=== PATIENT | male | born 1945 | race Hispanic/Latino ===

== ENCOUNTER 2021-07-13 05:33 | Observation (INO) | payer OTHER ==
[2021-07-08 15:06] LABS: BASOPHILS % (AUTO) 0.6 % (0.0-5.0); EOSINOPHILS % (AUTO) 2.1 % (0.0-8.0); HEMATOCRIT 35.8 % (42-54); LYMPHOCYTES % (AUTO) 27.4 % (21.0-51.0); MEAN CORPUSCULAR HEMOGLOBIN 31.6 pg (27.0-33.0); MEAN CORPUSCULAR HGB CONC 33.5 g/dL (32.0-36.0); MEAN CORPUSCULAR VOLUME 94.2 fL (79-99); MONOCYTES % (AUTO) 9.9 % (3.0-13.0); NEUTROPHILS % (AUTO) 59.8 % (40.0-77.0); PLATELET COUNT (AUTO) 190 K/uL (130-400); RED CELL DISTRIBUTION WIDTH 13.1 % (11.0-15.5); WHITE BLOOD COUNT (AUTO) 5.3 K/uL (4.8-10.8)
[2021-07-08 15:15] LABS: CREATININE 1.3 mg/dL (0.5-1.5); POTASSIUM 4.5 mmol/L (3.5-5.1)
[2021-07-08 15:17] LABS: INR 1.06 (0.85-1.15); PROTHROMBIN TIME 11.5 SEC (9.6-11.6)
[2021-07-08 15:18] LABS: PARTIAL THROMBOPLASTIN TIME 27.5 SEC (26.3-35.5)
[2021-07-12 10:29] VITALS: BP 139/64
[~2021-07-13] VITALS: Ht 165.1 cm; Wt 63.7 kg
[2021-07-13] VITALS (24 sets, daily range): BP systolic 93–156; BP diastolic 51–85
[2021-07-13] MEDS ORDERED: CEFAZOLIN SODIUM 1 GM VIAL ONE (06:43)
[2021-07-13] MEDS ORDERED: 0.9%NACL 1000ML 1,000 ML IV ONE (06:43)
[2021-07-13] MEDS ORDERED: TRANEXAMIC ACID 1000MG/10ML ONE ×3 (07:08)
[2021-07-13] MEDS ORDERED: MIDAZOLAM HCL 1 MG/ML 2ML VIAL ONE (07:16)
[2021-07-13] MEDS ORDERED: LIDOCAINE PF 100MG/5ML (2%) SYRINGE 5ML ONE (07:24)
[2021-07-13] MEDS ORDERED: ROCURONIUM 10MG/1ML SYR 10 MG/ML ML ONE ×2 (07:24→07:53)
[2021-07-13] MEDS ORDERED: PROPOFOL 10 MG/ML 20ML VIAL IV ONE ×2 (07:24→08:35)
[2021-07-13] MEDS ORDERED: PROPOFOL 1000 MG/100 ML 100 ML IV ONE (07:31)
[2021-07-13] MEDS ORDERED: CEFAZOLIN SODIUM 2 GM VIAL IV ONE (07:32)
[2021-07-13] MEDS ORDERED: FENTANYL CITRATE PF 50 MCG/1 ML 2ML VIAL ONE (07:33)
[2021-07-13] MEDS ORDERED: EPHEDRINE SULFATE 50 MG/ML AMPULE ONE (07:34)
[2021-07-13] MEDS ORDERED: TAMS-1 PO (07:41)
[2021-07-13] MEDS ORDERED: BUSP10TA3 PO (07:41)
[2021-07-13] MEDS ORDERED: CARB10DR6 OP (07:41)
[2021-07-13] MEDS ORDERED: OXYB5TAB15 PO (07:41)
[2021-07-13] MEDS ORDERED: SIMV-46 PO (07:41)
[2021-07-13] MEDS ORDERED: LATA7.5D OP (07:41)
[2021-07-13] MEDS ORDERED: CHOL200013 PO (07:41)
[2021-07-13] MEDS ORDERED: AMLO-257 PO (07:41)
[2021-07-13] MEDS ORDERED: LEVO25CA4 PO (07:41)
[2021-07-13] MEDS ORDERED: SILD20TA14 PO (07:41)
[2021-07-13] MEDS ORDERED: LOSA50TA64 PO (07:41)
[2021-07-13] MEDS ORDERED: FERR325T29 PO (07:41)
[2021-07-13] MEDS ORDERED: FAMO40TA7 PO (07:41)
[2021-07-13] MEDS ORDERED: AEC81 PO (07:41)
[2021-07-13] MEDS ORDERED: DICL20GE TP (07:41)
[2021-07-13] MEDS ORDERED: FLUO40CA7 PO (07:41)
[2021-07-13] MEDS ORDERED: OMEP40CA21 PO (07:41)
[2021-07-13] MEDS ORDERED: DICY10CA13 PO (07:41)
[2021-07-13] MEDS ORDERED: ROPIVACAINE 0.5% 5MG/ML 30ML IJ ONE (09:18)
[2021-07-13] MEDS ORDERED: DEXAMETHASONE SOD PHOSPHATE 10MG/ML 1ML VIAL ONE (09:20)
[2021-07-13] MEDS: ACETAMINOPHEN 500 MG TABLET PO SCH ×2 (09:30→17:58)
[2021-07-13] MEDS ORDERED: MORPHINE 4 MG SYG IVP PRN (09:30)
[2021-07-13] MEDS ORDERED: HYDROCODONE/ACETAMINOPHEN 5/325 MG TAB PO PRN (09:30)
[2021-07-13] MEDS ORDERED: POTASSIUM CHLORIDE 20MEQ/100ML 100 ML IV PRN (09:30)
[2021-07-13] MEDS ORDERED: KCL 20 MEQ ERTAB PO PRN (09:30)
[2021-07-13] MEDS ORDERED: HYDROCODONE/ACETAMINOPHEN 10/325 MG TAB PO PRN (09:30)
[2021-07-13] MEDS ORDERED: LIDOCAINE HCL-MPF 1% 2ML VIAL IV PRN (09:30)
[2021-07-13] MEDS ORDERED: POTASSIUM CHLORIDE 10% ELIXIR 20 MEQ/15 ML UDCUP PO PRN (09:30)
[2021-07-13] MEDS ORDERED: ONDANSETRON 4MG INJ IVP PRN (09:30)
[2021-07-13] MEDS ORDERED: 0.9%NACL 1000ML 1,000 ML IV SCH (09:30)
[2021-07-13] MEDS: INSULIN HUMULIN R 100 UNIT/ML 3ML SQ SCH ×3 (11:30→20:22)
[2021-07-13] MEDS: TRAMADOL HCL 50 MG TABLET PO SCH ×3 (12:00→23:38)
[2021-07-13] MEDS: ARTIFICAL TEARS SOL 15 ML OP SCH ×3 (13:44→20:16)
[2021-07-13] MEDS: DICYCLOMINE HCL 20 MG TAB PO SCH ×2 (14:00→20:15)
[2021-07-13] MEDS: CEFAZOLIN SODIUM 1 GM VIAL IVP SCH ×2 (15:44→23:38)
[2021-07-13] MEDS: OXYBUTYNIN CHLORIDE 5 MG TABLET PO SCH (20:14)
[2021-07-13] MEDS: CELECOXIB 200 MG CAP PO SCH (20:14)
[2021-07-13] MEDS: ASPIRIN 81 MG EC TAB PO SCH (20:15)
[2021-07-13] MEDS: LATANOPROST 2.5 ML DROPS OP SCH (20:49)
[2021-07-14 00:12] VITALS: BP 112/51
[2021-07-14] MEDS: ACETAMINOPHEN 500 MG TABLET PO SCH ×3 (02:06→20:37)
[2021-07-14 03:55] LABS: HEMATOCRIT 27.7 % (42-54); MEAN CORPUSCULAR HEMOGLOBIN 30.5 pg (27.0-33.0); MEAN CORPUSCULAR HGB CONC 33.2 g/dL (32.0-36.0); MEAN CORPUSCULAR VOLUME 91.7 fL (79-99); RED BLOOD CELL COUNT(AUTO) 3.02 MIL/uL (4.50-6.20); RED CELL DISTRIBUTION WIDTH 12.8 % (11.0-15.5); WHITE BLOOD COUNT (AUTO) 8.6 K/uL (4.8-10.8)
[2021-07-14 04:12] VITALS: BP 98/49
[2021-07-14 04:17] LABS: CREATININE 1.1 mg/dL (0.5-1.5); POTASSIUM 4.2 mmol/L (3.5-5.1)
[2021-07-14] MEDS: INSULIN HUMULIN R 100 UNIT/ML 3ML SQ SCH ×4 (05:17→20:37)
[2021-07-14] MEDS: LEVOTHYROXINE 25 MCG TABLET PO SCH (05:19)
[2021-07-14] MEDS: TRAMADOL HCL 50 MG TABLET PO SCH ×3 (05:21→18:58)
[2021-07-14 07:15] VITALS: BP 109/44
[2021-07-14] MEDS: LOSARTAN 50 MG TABLET PO SCH (08:13)
[2021-07-14] MEDS: SILDENAFIL CITRATE 20 MG TABLET PO SCH (08:14)
[2021-07-14] MEDS: AMLODIPINE 5 MG TAB PO SCH (08:14)
[2021-07-14] MEDS: DICYCLOMINE HCL 20 MG TAB PO SCH ×3 (09:00→20:37)
[2021-07-14] MEDS: OXYBUTYNIN CHLORIDE 5 MG TABLET PO SCH ×2 (09:00→20:33)
[2021-07-14] MEDS: ARTIFICAL TEARS SOL 15 ML OP SCH ×4 (09:04→20:38)
[2021-07-14] MEDS: BUSPIRONE HCL 5 MG TABLET PO SCH (09:04)
[2021-07-14] MEDS: ASPIRIN 81 MG EC TAB PO SCH ×2 (09:04→20:33)
[2021-07-14] MEDS: POLYETHYLENE GLYCOL 3350 17 GM POWD.PACK PO SCH (09:05)
[2021-07-14] MEDS: PANTOPRAZOLE 40 MG TAB DR PO SCH (09:05)
[2021-07-14] MEDS: FLUOXETINE HCL 20 MG CAPSULE PO SCH (09:05)
[2021-07-14] MEDS: CELECOXIB 200 MG CAP PO SCH ×2 (09:05→20:34)
[2021-07-14] MEDS: FERROUS SULFATE 325 MG TABLET.DR PO SCH (09:05)
[2021-07-14] MEDS: FAMOTIDINE 20MG TAB PO SCH (09:05)
[2021-07-14] MEDS: TAMSULOSIN HCL 0.4 MG CAP.ER.24H PO SCH (09:05)
[2021-07-14 11:15] VITALS: BP 121/49
[2021-07-14 15:35] VITALS: BP 114/48
[2021-07-14] MEDS: LATANOPROST 2.5 ML DROPS OP SCH (20:38)
[2021-07-14 20:47] VITALS: BP 104/47
[2021-07-15] MEDS: TRAMADOL HCL 50 MG TABLET PO SCH ×3 (00:13→12:09)
[2021-07-15 00:31] VITALS: BP 105/44
[2021-07-15 04:38] VITALS: BP 117/56
[2021-07-15] MEDS: LEVOTHYROXINE 25 MCG TABLET PO SCH (05:13)
[2021-07-15] MEDS: ACETAMINOPHEN 500 MG TABLET PO SCH (05:13)
[2021-07-15] MEDS: INSULIN HUMULIN R 100 UNIT/ML 3ML SQ SCH ×2 (05:26→11:30)
[2021-07-15 07:40] VITALS: BP 99/53
[2021-07-15] MEDS: FAMOTIDINE 20MG TAB PO SCH (08:56)
[2021-07-15] MEDS: FLUOXETINE HCL 20 MG CAPSULE PO SCH (08:56)
[2021-07-15] MEDS: TAMSULOSIN HCL 0.4 MG CAP.ER.24H PO SCH (08:56)
[2021-07-15] MEDS: DICYCLOMINE HCL 20 MG TAB PO SCH (08:56)
[2021-07-15] MEDS: PANTOPRAZOLE 40 MG TAB DR PO SCH (08:57)
[2021-07-15] MEDS: ASPIRIN 81 MG EC TAB PO SCH (08:57)
[2021-07-15] MEDS: FERROUS SULFATE 325 MG TABLET.DR PO SCH (08:57)
[2021-07-15] MEDS: OXYBUTYNIN CHLORIDE 5 MG TABLET PO SCH (08:57)
[2021-07-15] MEDS: BUSPIRONE HCL 5 MG TABLET PO SCH (08:57)
[2021-07-15] MEDS: POLYETHYLENE GLYCOL 3350 17 GM POWD.PACK PO SCH (08:58)
[2021-07-15] MEDS: CELECOXIB 200 MG CAP PO SCH (08:58)
[2021-07-15] MEDS: LOSARTAN 50 MG TABLET PO SCH (08:58)
[2021-07-15] MEDS: SILDENAFIL CITRATE 20 MG TABLET PO SCH (08:58)
[2021-07-15] MEDS: ARTIFICAL TEARS SOL 15 ML OP SCH (08:59)
[2021-07-15] MEDS: AMLODIPINE 5 MG TAB PO SCH (08:59)
[2021-07-15 11:00] VITALS: BP 115/57
[2021-07-16] MEDS ORDERED: BISACODYL 10 MG SUPP.RECT RC PRN (09:30)
== END 2021-07-15 14:20 | disposition home or self-care (01) ==
LOC: DAH 05:33 → 4AH 05:34
PROVIDERS: ADMIT Orthopaedic Surgery; ATTEND Orthopaedic Surgery
DX: M17.11 Unilateral primary osteoarthritis, right knee (principal); Z20.822 Contact with and (suspected) exposure to COVID-19; M24.561 Contracture, right knee; M21.161 Varus deformity, not elsewhere classified, right knee; E11.9 Type 2 diabetes mellitus without complications; I10 Essential (primary) hypertension; Z68.24 Body mass index [BMI] 24.0-24.9, adult; Z79.899 Other long term (current) drug therapy
CPT/HCPCS: 0055T; 27447; 36415; 64445; 64447; 76942; 80048; 82948; 85025; 85027; 85610; 85730; 87635; 87641; 88305; 88311; 93005; 96372; 96374; 96376; 97039; C9803; G0378; J0690; J1100; J1815; J2001; J2250; J2704; J2795; J3010; J3490; J7030